=== PATIENT | female | born 2000 | race Caucasian/White ===

== ENCOUNTER 2018-10-19 22:27 | Inpatient (IN) | payer BC ==
[2018-10-19] MEDS ORDERED: SODIUM CHLORIDE 1,000 ML IV STA (22:51)
[2018-10-19] MEDS ORDERED: ACETAMINOPHEN 1000 MG/100 ML VIAL (NON FORMULARY) IVPB ONE (22:51)
[2018-10-19] MEDS ORDERED: ONDANSETRON 4 MG/2 ML VIAL IVPUSH ONE (22:51)
[2018-10-20 00:21] LABS: EPI CELLS 0.2 /HPF (0-5/HPF); HYALINE CASTS 44 /lpf (0-8); URINE APPEARANCE CLEAR; URINE BILIRUBIN NEGATIVE (NEGATIVE); URINE COLOR YELLOW; URINE GLUCOSE (UA) NEGATIVE (NEGATIVE); URINE KETONE NEGATIVE (NEGATIVE); URINE LEUK ESTERASE 2+ (NEGATIVE); URINE NITRITE NEGATIVE (NEGATIVE); URINE PROTEIN NEGATIVE (NEGATIVE); URINE RBC 3 /hpf (0-4); URINE UROBILINOGEN 0.2 mg/dL (0.2-1.0); URINE WBC 61 /hpf (0-5)
--- NOTE | 2018-10-20 01:50 | PDOC ---
History of Present Illness - General Chief Complaint: Urinary Problem Stated Complaint: URINARY PROBLEM Time Seen by Provider: 10/19/18 22:50 History Source: Patient Exam Limitations: No Limitations Past History - Travel Traveled outside of the country in the last 30 days: No Close contact w/someone who was outside of country & ill: No - Past Medical History Allergies/Adverse Reactions: Allergies Allergy/AdvReac Type Severity Reaction Status Date / Time No Known Allergies Allergy Verified 10/20/18 02:14 Home Medications: Ambulatory Orders Acetaminophen [Tylenol] 625 mg PO Q8H PRN #20 capsule 10/22/18 Cephalexin [Keflex] 500 mg PO Q12H #16 capsule 10/22/18 Ibuprofen [Motrin Ib] 200 mg PO Q8H PRN #20 tablet 10/22/18 COPD: No Other medical history: No Rt Kidney since . - Suicide/Smoking/Psychosocial Hx Smoking History: Current some day smoker Have you smoked in the past 12 months: Yes Number of Cigarettes Smoked Daily: 0 Information on smoking cessation initiated: Yes Hx Alcohol Use: Yes Drug/Substance Use Hx: Yes Review of Systems - Review of Systems Able to Perform ROS?: Yes Comments:: 10/20/18 01:38 CONSTITUTIONAL: Absent: fever, chills, diaphoresis, generalized weakness, malaise, loss of appetite HEENT: Absent: rhinorrhea, nasal congestion, throat pain, throat swelling, difficulty swallowing, mouth swelling, ear pain, eye pain, visual Changes CARDIOVASCULAR: Absent: chest pain, loss of consciousness, palpitations, irregular heart rate, peripheral edema RESPIRATORY: Absent: cough, shortness of breath, dyspnea with exertion, orthopnea, wheezing, stridor, hemoptysis GASTROINTESTINAL: Absent: abdominal pain, abdominal distension, nausea, vomiting, diarrhea, constipation, melena, hematochezia GENITOURINARY: Present: dysuria, frequency, hematuria, flank pain Absent: urgency, hesitancy, genital pain MUSCULOSKELETAL: Absent: myalgia, arthralgia, joint swelling SKIN: Absent: rash, itching, pallor HEMATOLOGIC/IMMUNOLOGIC: Absent: easy bleeding, easy bruising, lymphadenopathy, frequent infections ENDOCRINE: Absent: unexplained weight gain, unexplained weight loss, heat intolerance, cold intolerance NEUROLOGIC: Absent: headache, focal weakness or paresthesias, dizziness, unsteady gait, seizure, mental status changes, bladder or bowel incontinence PSYCHIATRIC: Absent: anxiety, depression, suicidal or homicidal ideation, hallucinations. Is the patient limited Bulgarian proficient: No *Physical Exam - Vital Signs Last Vital Signs Temp Pulse Resp BP Pulse Ox 98.5 F 97 H 18 115/74 100 10/19/18 22:33 10/19/18 22:33 10/19/18 22:33 10/19/18 22:33 10/19/18 22:33 - Physical Exam Comments: 10/20/18 01:39 GENERAL: Well developed, well nourished. Awake and alert. No acute distress. HEENT: Normocephalic, atraumatic. PERRLA, EOMI. No conjunctival pallor. Sclera are non- icteric. Moist mucous membranes. Oropharynx is clear. NECK: Supple. Full ROM. No JVD. Carotid pulses 2+ and symmetric, without bruits. No thyromegaly. No lymphadenopathy. CARDIOVASCULAR: Regular rate and rhythm. No murmurs, rubs, or gallops. Distal pulses are 2+ and symmetric. PULMONARY: No evidence of respiratory distress. Lungs clear to auscultation bilaterally. No wheezing, rales or rhonchi. ABDOMINAL: Soft. Abdominal discomfort in the lower abdomen. Non-distended. No rebound or guarding. No organomegaly. Normoactive bowel sounds. MUSCULOSKELETAL Normal range of motion at all joints. No bony deformities or tenderness. (+) L CVA tenderness. EXTREMITIES: No cyanosis. No clubbing. No edema. No calf tenderness. SKIN: Warm and dry. Normal capillary refill. No rashes. No jaundice. NEUROLOGICAL: Alert, awake, appropriate. Cranial nerves 2-12 intact. No deficits to light touch and temperature in face, upper extremities and lower extremities. No motor deficits in the in face, upper extremities and lower extremities. Normoreflexic in the upper and lower extremities. Normal speech. Toes are down- going bilaterally. Gait is normal without ataxia. PSYCHIATRIC: Cooperative. Good eye contact. Appropriate mood and affect. ED Treatment Course - LABORATORY CBC & Chemistry Diagram: 10/22/18 06:00 10/22/18 06:00 - ADDITIONAL ORDERS Additional order review: Laboratory Results 10/20/18 00:11 Urine Color Yellow Urine Appearance Clear Urine pH 7.0 Ur Specific [place] 1.017 Urine Protein Negative Urine Glucose (UA) Negative Urine Ketones Negative Urine Blood Negative Urine Nitrite Negative Urine Bilirubin Negative Urine Urobilinogen 0.2 Ur Leukocyte Esterase 2+ H Urine WBC (Auto) 61 Urine RBC (Auto) 3 Urine Casts (Auto) 44 U Epithel Cells (Auto) 0.2 Urine Bacteria (Auto) 845.0 Medical Decision Making - Medical Decision Making 10/20/18 01:40 The patient is a 18 y/o F with PMH of singular kidney (L sided) who presents to the ER today for two days of dysuria, frequency, and L sided back pain. She states that she notes blood on the tissue paper after urinating. She states she has had UTI's in the past and this pain feels similar. Also admits to some associated nausea. Denies fevers, chills, shortness of breath, diarrhea, constipation. A/P: Dysuria On exam pt with mild suprapubic tenderness and L flank pain Urine is positive for infection at this time. Basic labs drawn to evaluate for pyleonephritis given the setting of one kidney Fluids, IV meds ordered Sign out given to Dr. Perez; dispo depending on labs and kidney function. Will need abx *DC/Admit/Observation/Transfer Diagnosis at time of Disposition: Pyelonephritis UTI (urinary tract infection) Qualifiers: Urinary tract infection type: site unspecified Hematuria presence: with hematuria Qualified Code(s): N39.0 - Urinary tract infection, site not specified - Discharge Dispostion Disposition: HOME Condition at time of disposition: Improved - Referrals - Patient Instructions - Post Discharge Activity
[2018-10-20 03:19] LABS: BASO % 0.8 % (0-2.0); EOS % 2.1 % (0-4.5); HEMATOCRIT 41.2 % (32.4-45.2); HEMOGLOBIN 13.9 GM/dL (10.7-15.3); LYMPH % 29.2 % (8-40); MCH 27.9 pg (25.7-33.7); MCHC 33.9 g/dl (32.0-36.0); MEAN CELL VOLUME 82.5 fl (80-96); MEAN PLT VOLUME 8.8 fl (7.5-11.1); MONO % 4.4 % (3.8-10.2); NEUT % 63.5 % (42.8-82.8); PLATELET COUNT 257 K/MM3 (134-434); RBC 4.99 M/mm3 (3.60-5.2); RDW 13.8 % (11.6-15.6)
[2018-10-20] MEDS ORDERED: CEFTRIAXONE 1,000 MG in DEXTROSE 5%-WATER - 50 ML IVPB ONE (03:43)
--- NOTE | 2018-10-20 03:43 | PDOC ---
*Physical Exam - Vital Signs Last Vital Signs Temp Pulse Resp BP Pulse Ox 98.5 F 97 H 18 115/74 100 10/19/18 22:33 10/19/18 22:33 10/19/18 22:33 10/19/18 22:33 10/19/18 22:33 - Physical Exam General Appearance: Yes: Nourished, Appropriately Dressed. No: Apparent Distress HEENT: positive: Normal ENT Inspection, Normal Voice Neck: positive: Supple Respiratory/Chest: positive: Lungs Clear Cardiovascular: positive: Regular Rhythm, Regular Rate Vascular Pulses: Dorsalis-Pedis (R): 2+, Doralis-Pedis (L): 2+ Gastrointestinal/Abdominal: positive: Normal Bowel Sounds, Soft. negative: Guarding Rectal Exam: positive: deferred Lymphatic: negative: Adenopathy Musculoskeletal: positive: Normal Inspection, CVA Tenderness Extremity: positive: Normal Capillary Refill, Normal Inspection, Normal Range of Motion Integumentary: positive: Normal Color, Dry, Warm Neurologic: positive: Fully Oriented, Alert, Normal Mood/Affect ED Treatment Course - LABORATORY CBC & Chemistry Diagram: 10/20/18 03:07 10/20/18 03:07 - ADDITIONAL ORDERS Additional order review: Laboratory Results 10/20/18 00:11 Urine Color Yellow Urine Appearance Clear Urine pH 7.0 Ur Specific [place] 1.017 Urine Protein Negative Urine Glucose (UA) Negative Urine Ketones Negative Urine Blood Negative Urine Nitrite Negative Urine Bilirubin Negative Urine Urobilinogen 0.2 Ur Leukocyte Esterase 2+ H Urine WBC (Auto) 61 Urine RBC (Auto) 3 Urine Casts (Auto) 44 U Epithel Cells (Auto) 0.2 Urine Bacteria (Auto) 845.0 10/20/18 03:07 RBC 4.99 MCV 82.5 MCHC 33.9 RDW 13.8 MPV 8.8 Neutrophils % 63.5 Lymphocytes % 29.2 Monocytes % 4.4 Eosinophils % 2.1 Basophils % 0.8 - Medications Given in the ED: ED Medications Discontinued Medications Generic Name Dose Route Start Last Admin Trade Name Freq PRN Reason Stop Dose Admin Acetaminophen 1,000 mg 10/19/18 22:51 10/20/18 02:12 Ofirmev Injection - IVPB 10/19/18 22:52 1,000 mg ONCE ONE Administration Sodium Chloride 1,000 mls @ 1,000 mls/hr 10/19/18 22:51 10/20/18 02:11 Normal Saline - IV 10/19/18 23:50 1,000 mls/hr ASDIR STA Administration Ondansetron HCl 4 mg 10/19/18 22:51 10/20/18 02:12 Zofran Injection IVPUSH 10/19/18 22:52 4 mg ONCE ONE Administration Medical Decision Making - Medical Decision Making Patient signed out to me with UTI and one kidney. When I evlauated her she had significant flank pain worrisome for Pylo. Considering she only has 1 kidney I am concerned that she might have pylo and needs to be admitted for IV Abx. Plan: Abx, Admit - Ceftriaxone for Abx *DC/Admit/Observation/Transfer Diagnosis at time of Disposition: Pyelonephritis UTI (urinary tract infection) Qualifiers: Urinary tract infection type: site unspecified Hematuria presence: with hematuria Qualified Code(s): N39.0 - Urinary tract infection, site not specified ; R31.9 - Hematuria, unspecified - Discharge Dispostion Condition at time of disposition: Stable Decision to Admit order: Yes - Referrals - Patient Instructions - Post Discharge Activity
[2018-10-20 03:46] LABS: ALBUMIN 3.6 g/dl (3.4-5.0); BILIRUBIN,TOTAL 0.4 mg/dL (0.2-1); BLOOD UREA NITROGEN 14.9 mg/dL (7-18); CALCIUM 9.4 mg/dL (8.5-10.1); CREATININE 0.8 mg/dL (0.55-1.3); TOT PROT 7.7 g/dl (6.4-8.2)
[2018-10-20] MEDS ORDERED: CEFTRIAXONE 1 GM/50 ML BAG ONE (04:28)
[2018-10-20] MEDS: HEPARIN NA (PORCINE) 5,000 UNITS/ML 1ML VIAL SQ SCH ×3 (05:49→21:16)
--- NOTE | 2018-10-20 06:28 | PN ---
Teaching Attending Note Name of Resident: Jonas Ariza ATTENDING PHYSICIAN STATEMENT I saw and evaluated the patient. Chart, data, imaging reviewed. I reviewed the resident's note and discussed the case with the resident. I agree with the resident's findings and plan as documented. SUBJECTIVE: 18 y/o F with PMH of singular kidney (L sided) c/o 3 days of dysuria, left flank pain. Reports one prior episode of pyelonephritis 2 years ago. Has not had any fevers or chills. Has not taken any medications at home. OBJECTIVE: Last Vital Signs Temp Pulse Resp BP Pulse Ox 98.5 F 97 H 18 115/74 100 10/19/18 22:33 10/19/18 22:33 10/19/18 22:33 10/19/18 22:33 10/19/18 22:33 general- nontoxic, obese heent- nt, nc, aaxo3 neck supple cor- s1+s2+rrr chest clear abdomen soft nt, bs+, left sided cva tenderness skin - no rashes seen Abnormal Lab Results 10/20/18 10/20/18 10/20/18 00:11 03:07 03:07 WBC 11.0 H Alkaline Phosphatase 133 H Ur Leukocyte Esterase 2+ H ASSESSMENT AND PLAN: #Left sided pyelo, leukocytosis, congenital unilateral kidney. VS wnl -admit to med/surg -IV fluid hydration -urine culture -ceftriaxone 1g IV q24hrs -heparin sc for dvt ppx -urine drug screen
--- NOTE | 2018-10-20 07:06 | HP ---
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 She presents with burning micturation with increased urinary frequency for the past 2 days and left flank pain for 1 day. The dysuria is not associated with visible hematuria, but she states that she has noticed a few drops of fresh blood after her post void wipe today. The flank pain is localized to the left side, sudden in onset, sharp in quality, 5/ 10 in intensity, intermittent, and non radiating. She has only had one UTI in the past, in 2016, and she was treated with oral antibiotics for 5-7 days. She tested negative for STDs last year, and engaged in unprotected intercourse in early August. Her LMP was also in early August. ER course was notable for: (1) Ceftriaxone (2) UA LE 2+ (3) Ofiramev for pain Recent Travel: [place] for a month in September, had the flu for 5 days PAST MEDICAL HISTORY: Congenital anomaly that left her with one kidney (on the left) PAST SURGICAL HISTORY: None Social History: Smoking: Vape, socially Alcohol: socially Drugs: marijuana, finished an eighth in a week Family History: None Allergies No Known Allergies Allergy (Verified 10/20/18 02:14) HOME MEDICATIONS: REVIEW OF SYSTEMS CONSTITUTIONAL: Chills Absent: fever, chills, diaphoresis, generalized weakness, malaise, loss of appetite, weight change HEENT: Absent: rhinorrhea, nasal congestion, throat pain, throat swelling, difficulty swallowing, mouth swelling, ear pain, eye pain, visual changes CARDIOVASCULAR: Absent: chest pain, syncope, palpitations, irregular heart rate, lightheadedness , peripheral edema RESPIRATORY: Absent: cough, shortness of breath, dyspnea with exertion, orthopnea, wheezing, stridor, hemoptysis GASTROINTESTINAL: Absent: abdominal pain, abdominal distension, nausea, vomiting, diarrhea, constipation, melena, hematochezia GENITOURINARY: dysuria, frequency, urgency, flank pain, Absent: dysuria, frequency, urgency, hesitancy, hematuria, flank pain, genital pain MUSCULOSKELETAL: Absent: myalgia, arthralgia, joint swelling, back pain, neck pain SKIN: Absent: rash, itching, pallor HEMATOLOGIC/IMMUNOLOGIC: Absent: easy bleeding, easy bruising, lymphadenopathy, frequent infections ENDOCRINE: Absent: unexplained weight gain, unexplained weight loss, heat intolerance, cold intolerance NEUROLOGIC: Absent: headache, focal weakness or paresthesias, dizziness, unsteady gait, seizure, mental status changes, bladder or bowel incontinence PSYCHIATRIC: Absent: anxiety, depression, suicidal or homicidal ideation, hallucinations. PHYSICAL EXAMINATION Vital Signs - 24 hr 10/19/18 10/20/18 22:33 06:37 Temperature 98.5 F 98.2 F Pulse Rate 97 H 76 Respiratory 18 18 Rate Blood Pressure 115/74 128/58 L O2 Sat by Pulse 100 Oximetry (%) GENERAL: Awake, alert, and fully oriented, in no acute distress. HEAD: Normal with no signs of trauma. EYES: Pupils equal, round and reactive to light, extraocular movements intact, sclera anicteric, conjunctiva clear. No lid lag. EARS, NOSE, THROAT: Ears normal, nares patent, oropharynx clear without exudates. Moist mucous membranes. NECK: Normal range of motion, supple without lymphadenopathy, JVD, or masses. LUNGS: Breath sounds equal, clear to auscultation bilaterally. No wheezes, and no crackles. No accessory muscle use. HEART: Regular rate and rhythm, normal S1 and S2 without murmur, rub or gallop. ABDOMEN: Soft, not distended, normoactive bowel sounds, Left CVA tenderness MUSCULOSKELETAL: Normal range of motion at all joints. No bony deformities or tenderness. No CVA tenderness. UPPER EXTREMITIES: 2+ pulses, warm, well-perfused. No cyanosis. No clubbing. No peripheral edema. LOWER EXTREMITIES: 2+ pulses, warm, well-perfused. No calf tenderness. No peripheral edema. NEUROLOGICAL: Cranial nerves II-XII intact. Normal speech. Normal gait. PSYCHIATRIC: Cooperative. Good eye contact. Appropriate mood and affect. SKIN: Warm, dry, normal turgor, no rashes or lesions noted, normal capillary refill. Laboratory Results - last 24 hr 10/20/18 10/20/18 10/20/18 00:11 03:07 03:07 WBC 11.0 H RBC 4.99 Hgb 13.9 Hct 41.2 MCV 82.5 MCH 27.9 MCHC 33.9 RDW 13.8 Plt Count 257 MPV 8.8 Absolute Neuts (auto) 7.0 Neutrophils % 63.5 Lymphocytes % 29.2 Monocytes % 4.4 Eosinophils % 2.1 Basophils % 0.8 Nucleated RBC % 0 Sodium 137 Potassium 4.0 Chloride 106 Carbon Dioxide 23 Anion Gap 8 BUN 14.9 Creatinine 0.8 Est GFR (CKD-EPI)AfAm 123.01 Est GFR (CKD-EPI)NonAf 106.13 Random Glucose 91 Calcium 9.4 Total Bilirubin 0.4 AST 23 ALT 26 Alkaline Phosphatase 133 H Total Protein 7.7 Albumin 3.6 Urine Color Yellow Urine Appearance Clear Urine pH 7.0 Ur Specific [place] 1.017 Urine Protein Negative Urine Glucose (UA) Negative Urine Ketones Negative Urine Blood Negative Urine Nitrite Negative Urine Bilirubin Negative Urine Urobilinogen 0.2 Ur Leukocyte Esterase 2+ H Urine WBC (Auto) 61 Urine RBC (Auto) 3 Urine Casts (Auto) 44 U Epithel Cells (Auto) 0.2 Urine Bacteria (Auto) 845.0 ASSESSMENT/PLAN: #Pyelonephritis - WBC 11.0 - Congenital unilateral kidney - Ceftriaxone 1g IV Q24H started - Urine culture sent - Urine tox screen - Ofirmev for pain #FEN - N/S @ 1000 given in ER - Regular diet #DVT PE - Heparin 5000 SQ #Code status - Full code Visit type - Emergency Visit Emergency Visit: Yes ED Registration Date: 10/20/18 Care time: The patient presented to the Emergency Department on the above date and was hospitalized for further evaluation of their emergent condition. - New Patient This patient is new to me today: Yes Date on this admission: 10/20/18 - Critical Care Critical Care patient: No ATTENDING PHYSICIAN STATEMENT I saw and evaluated the patient. I reviewed the resident's note and discussed the case with the resident. I agree with the resident's findings and plan as documented. SUBJECTIVE: OBJECTIVE: ASSESSMENT AND PLAN:
[2018-10-20 08:39] VITALS: BMI 38.8
[2018-10-20] MEDS: SODIUM CHLORIDE 1,000 ML IV SCH (08:39)
[2018-10-20 10:58] LABS: BASO % 0.5 % (0-2.0); HEMATOCRIT 35.7 % (32.4-45.2); HEMOGLOBIN 12.1 GM/dL (10.7-15.3); LYMPH % 31.8 % (8-40); MCH 27.8 pg (25.7-33.7); MCHC 33.8 g/dl (32.0-36.0); MEAN CELL VOLUME 82.5 fl (80-96); MEAN PLT VOLUME 8.9 fl (7.5-11.1); MONO % 5.3 % (3.8-10.2); NEUT % 60.4 % (42.8-82.8); PLATELET COUNT 228 K/MM3 (134-434); RBC 4.33 M/mm3 (3.60-5.2); WHITE BLOOD COUNT 10.8 K/mm3 (4.0-10.0)
[2018-10-20 11:24] LABS: BLOOD UREA NITROGEN 14.2 mg/dL (7-18); CALCIUM 8.5 mg/dL (8.5-10.1); CREATININE 0.8 mg/dL (0.55-1.3); MAGNESIUM 1.7 mg/dL (1.8-2.4); POTASSIUM 3.9 mmol/L (3.5-5.1)
[2018-10-20] MEDS: KETOROLAC TROMETHAMINE 15 MG/ML VIAL IVPUSH PRN (13:24)
--- NOTE | 2018-10-20 14:01 | EKG ---
Test Reason : Blood Pressure : / mmHG Vent. Rate : 075 BPM Atrial Rate : 075 BPM P-R Int : 116 ms QRS Dur : 072 ms QT Int : 376 ms P-R-T Axes : 016 047 016 degrees QTc Int : 419 ms NORMAL SINUS RHYTHM NORMAL ECG NO PREVIOUS ECGS AVAILABLE Confirmed by AKILAH GROVER MD ([id number]) on 10/20/2018 2:00:46 PM Referred By: Confirmed By:AKILAH GROVER MD
--- NOTE | 2018-10-20 14:46 | PN ---
Physical Exam: SUBJECTIVE: Patient seen and examined at the bedside, no acute events overnight. Patient still feeling some suprapubic pain and L flank tenderness. OBJECTIVE: Vital Signs Period Temp Pulse Resp BP Sys/Brown Pulse Ox Last 24 Hr 98.2 F-98.5 F 76-97 18-20 105-128/53-74 100-100 GENERAL: Awake, alert, and fully oriented, in no acute distress. HEAD: Normal with no signs of trauma. EYES: Pupils equal, round and reactive to light, extraocular movements intact, sclera anicteric, conjunctiva clear. No lid lag. EARS, NOSE, THROAT: Ears normal, nares patent, oropharynx clear without exudates. Moist mucous membranes. NECK: Normal range of motion, supple without lymphadenopathy, JVD, or masses. LUNGS: Breath sounds equal, clear to auscultation bilaterally. No wheezes, and no crackles. No accessory muscle use. HEART: Regular rate and rhythm, normal S1 and S2 without murmur, rub or gallop. ABDOMEN: Soft, not distended, normoactive bowel sounds, Left CVA tenderness MUSCULOSKELETAL: Normal range of motion at all joints. No bony deformities or tenderness. UPPER EXTREMITIES: 2+ pulses, warm, well-perfused. No cyanosis. No clubbing. No peripheral edema. LOWER EXTREMITIES: 2+ pulses, warm, well-perfused. No calf tenderness. No peripheral edema. NEUROLOGICAL: Cranial nerves II-XII intact. Normal speech. Normal gait. PSYCHIATRIC: Cooperative. Good eye contact. Appropriate mood and affect. SKIN: Warm, dry, normal turgor, no rashes or lesions noted, normal capillary refill. Laboratory Results - last 24 hr 10/20/18 10/20/18 10/20/18 00:11 03:07 03:07 WBC 11.0 H RBC 4.99 Hgb 13.9 Hct 41.2 MCV 82.5 MCH 27.9 MCHC 33.9 RDW 13.8 Plt Count 257 MPV 8.8 Absolute Neuts (auto) 7.0 Neutrophils % 63.5 Lymphocytes % 29.2 Monocytes % 4.4 Eosinophils % 2.1 Basophils % 0.8 Nucleated RBC % 0 Sodium 137 Potassium 4.0 Chloride 106 Carbon Dioxide 23 Anion Gap 8 BUN 14.9 Creatinine 0.8 Est GFR (CKD-EPI)AfAm 123.01 Est GFR (CKD-EPI)NonAf 106.13 Random Glucose 91 Calcium 9.4 Magnesium Total Bilirubin 0.4 AST 23 ALT 26 Alkaline Phosphatase 133 H Total Protein 7.7 Albumin 3.6 Urine Color Yellow Urine Appearance Clear Urine pH 7.0 Ur Specific [place] 1.017 Urine Protein Negative Urine Glucose (UA) Negative Urine Ketones Negative Urine Blood Negative Urine Nitrite Negative Urine Bilirubin Negative Urine Urobilinogen 0.2 Ur Leukocyte Esterase 2+ H Urine WBC (Auto) 61 Urine RBC (Auto) 3 Urine Casts (Auto) 44 U Epithel Cells (Auto) 0.2 Urine Bacteria (Auto) 845.0 Urine HCG, Qual 10/20/18 10/20/18 10/20/18 08:45 10:30 10:30 WBC 10.8 H RBC 4.33 Hgb 12.1 Hct 35.7 MCV 82.5 MCH 27.8 MCHC 33.8 RDW 14.0 Plt Count 228 MPV 8.9 Absolute Neuts (auto) 6.5 Neutrophils % 60.4 Lymphocytes % 31.8 Monocytes % 5.3 Eosinophils % 2.0 Basophils % 0.5 Nucleated RBC % 0 Sodium 139 Potassium 3.9 Chloride 104 Carbon Dioxide 27 Anion Gap 8 BUN 14.2 Creatinine 0.8 Est GFR (CKD-EPI)AfAm 123.01 Est GFR (CKD-EPI)NonAf 106.13 Random Glucose 91 Calcium 8.5 Magnesium 1.7 L Total Bilirubin AST ALT Alkaline Phosphatase Total Protein Albumin Urine Color Urine Appearance Urine pH Ur Specific [place] Urine Protein Urine Glucose (UA) Urine Ketones Urine Blood Urine Nitrite Urine Bilirubin Urine Urobilinogen Ur Leukocyte Esterase Urine WBC (Auto) Urine RBC (Auto) Urine Casts (Auto) U Epithel Cells (Auto) Urine Bacteria (Auto) Urine HCG, Qual Negative Active Medications Generic Name Dose Route Start Last Admin Trade Name Freq PRN Reason Stop Dose Admin Heparin Sodium (Porcine) 5,000 unit 10/20/18 06:00 10/20/18 13:25 Heparin - SQ Not Given TID MECHELLE Ceftriaxone Sodium 1 gm/ 50 mls @ 100 mls/hr 10/20/18 18:00 Dextrose IVPB Q24H MECHELLE Sodium Chloride 1,000 mls @ 100 mls/hr 10/20/18 07:15 10/20/18 08:39 Normal Saline - IV 100 mls/hr ASDIR MECHELLE Administration Ketorolac Tromethamine 15 mg 10/20/18 13:03 10/20/18 13:24 Toradol Injection - IVPUSH 10/25/18 13:02 15 mg Q6H PRN Administration PAIN LEVEL 4 - 6 ASSESSMENT/PLAN: Ms. Guillermo Mack is a 18 y/o woman with a pmhx of congential L sided unilateral kidney, and UTI who presented with urinary sx and is currently admitted for management of L pyelonephritis. # L Pyelonephritis - WBC 11.0 - Congenital unilateral kidney - Contine Ceftriaxone 1g IV Q24H - F/U Urine culture - Ofirmev for pain - Zofran for nausea #FEN - N/S @ 1000 given in ER, can tolerate PO fluids - Regular diet #DVT PE - Heparin 5000 SQ #Code status - Full code Visit type - Emergency Visit Emergency Visit: Yes ED Registration Date: 10/20/18 Care time: The patient presented to the Emergency Department on the above date and was hospitalized for further evaluation of their emergent condition. - New Patient This patient is new to me today: Yes Date on this admission: 10/21/18 - Critical Care Critical Care patient: No - Discharge Referral Referred to [facility] Med P.C.: No ATTENDING PHYSICIAN STATEMENT I saw and evaluated the patient. I reviewed the resident's note and discussed the case with the resident. I agree with the resident's findings and plan as documented. SUBJECTIVE: OBJECTIVE: ASSESSMENT AND PLAN:
[2018-10-20] MEDS ORDERED: ONDANSETRON 8 MG TABLET (FP) PO PRN ×2 (15:49→16:32)
[2018-10-20] MEDS ORDERED: ONDANSETRON 4 MG/2 ML VIAL IVPUSH PRN (15:55)
[2018-10-20] MEDS ORDERED: MAGNESIUM OXIDE 400 MG TABLET (FP) PO ONE (16:28)
--- NOTE | 2018-10-20 17:20 | PN ---
Teaching Attending Note Name of Resident: Carolin Levy ATTENDING PHYSICIAN STATEMENT I saw and evaluated the patient. I reviewed the resident's note and discussed the case with the resident. I agree with the resident's findings and plan as documented. SUBJECTIVE: pain in L flank is better . No fever or chills. OBJECTIVE: NAD. Cv: RRR Lungs : CTAb Ext No edema ABD: soft, ND, TTP in suprapubic area and LLQ. + L CVA tenderness ASSESSMENT AND PLAN: 18 y/o lady with h.o solitary kidney, and UTI who presented with urinary sx and was diagnosed with L pyelonephritis 1- L pyelonephjritis: - cont ceftriaxone - IVF - follow urine cx - zofran for nausea 2- DVT PX : heparin sq
[2018-10-20] MEDS ORDERED: CEFTRIAXONE 1 GM in DEXTROSE 5%-WATER - 50 ML IVPB SCH (18:00)
[2018-10-21] MEDS: SODIUM CHLORIDE 1,000 ML IV SCH ×2 (04:49→09:05)
[2018-10-21] MEDS: HEPARIN NA (PORCINE) 5,000 UNITS/ML 1ML VIAL SQ SCH ×3 (05:48→22:09)
[2018-10-21 07:17] LABS: HEMATOCRIT 36.1 % (32.4-45.2); HEMOGLOBIN 12.1 GM/dL (10.7-15.3); MCH 27.7 pg (25.7-33.7); MCHC 33.6 g/dl (32.0-36.0); MEAN CELL VOLUME 82.4 fl (80-96); MEAN PLT VOLUME 8.7 fl (7.5-11.1); PLATELET COUNT 219 K/MM3 (134-434); RBC 4.38 M/mm3 (3.60-5.2); WHITE BLOOD COUNT 7.9 K/mm3 (4.0-10.0)
[2018-10-21 07:41] LABS: BLOOD UREA NITROGEN 9.2 mg/dL (7-18); CALCIUM 8.6 mg/dL (8.5-10.1); CREATININE 0.6 mg/dL (0.55-1.3); POTASSIUM 4.1 mmol/L (3.5-5.1)
[2018-10-21] MEDS ORDERED: DEXTROSE 5%-WATER - 50 ML IVPB ONE (08:47)
[2018-10-21] MEDS ORDERED: cefTRIAXone SODIUM 1 GM VIAL ONE (08:47)
[2018-10-21] MEDS: CEFTRIAXONE 1 GM in DEXTROSE 5%-WATER - 50 ML IVPB SCH (09:00)
[2018-10-21] MEDS: KETOROLAC TROMETHAMINE 15 MG/ML VIAL IVPUSH PRN (14:20)
[2018-10-21] MEDS ORDERED: KETOROLAC TROMETHAMINE 15 MG/ML VIAL IVPUSH PRN (14:53)
--- NOTE | 2018-10-21 14:56 | PN ---
Teaching Attending Note Name of Resident: Val Toledo ATTENDING PHYSICIAN STATEMENT I saw and evaluated the patient. I reviewed the resident's note and discussed the case with the resident. I agree with the resident's findings and plan as documented. SUBJECTIVE: No fever or chills. No JOHNSON. still has abd pain and left flank pain. no diarrhea. No flank pain OBJECTIVE: NAD. Cv: RRR Lungs : CTAb Ext No edema ABD: soft, ND, TTP in suprapubic area and LLQ. + L CVA tenderness ASSESSMENT AND PLAN: 18 y/o lady with h.o solitary kidney, and UTI who presented with urinary sx and was diagnosed with L pyelonephritis 1- L pyelonephjritis: - cont ceftriaxone - IVF - urine cx with lactose fermenting GNR . will follow sensitivity - zofran for nausea 2- DVT PX: heparin sq
[2018-10-22] MEDS: HEPARIN NA (PORCINE) 5,000 UNITS/ML 1ML VIAL SQ SCH (05:48)
[2018-10-22 07:41] LABS: HEMATOCRIT 35.5 % (32.4-45.2); HEMOGLOBIN 11.9 GM/dL (10.7-15.3); MCH 27.9 pg (25.7-33.7); MCHC 33.7 g/dl (32.0-36.0); MEAN CELL VOLUME 82.9 fl (80-96); MEAN PLT VOLUME 9.4 fl (7.5-11.1); PLATELET COUNT 211 K/MM3 (134-434); RBC 4.28 M/mm3 (3.60-5.2); RDW 13.8 % (11.6-15.6); WHITE BLOOD COUNT 6.5 K/mm3 (4.0-10.0)
[2018-10-22 07:52] LABS: BLOOD UREA NITROGEN 12.2 mg/dL (7-18); CALCIUM 8.3 mg/dL (8.5-10.1); CREATININE 0.6 mg/dL (0.55-1.3); POTASSIUM 4.1 mmol/L (3.5-5.1)
[2018-10-22] MEDS ORDERED: cefTRIAXone SODIUM 1 GM VIAL ONE (08:51)
[2018-10-22] MEDS ORDERED: DEXTROSE 5%-WATER - 50 ML IVPB ONE (08:51)
[2018-10-22] MEDS: CEFTRIAXONE 1 GM in DEXTROSE 5%-WATER - 50 ML IVPB SCH (09:34)
[2018-10-22] MEDS ORDERED: DOCUSATE SODIUM 100 MG CAPSULE (FP) PO ONE (10:41)
[2018-10-22] MEDS ORDERED: SENNOSIDES 8.6MG TABLET (FP) PO ONE (10:42)
[2018-10-22] MEDS: SODIUM CHLORIDE 1,000 ML IV SCH (12:46)
[2018-10-22 14:23] VITALS: BP 116/62; PULSE 69; TEMP 98.2
--- NOTE | 2018-10-22 16:13 | PN ---
Progress Note (short form) - Note Progress Note: Subjective: no fever or chills. No JOHNSON . Abd pain is better . has discomfort in L foot when she ambulates Objective: Vital Signs: Last Vital Signs Temp Pulse Resp BP Pulse Ox 98.2 F 69 20 116/62 100 10/22/18 14:22 10/22/18 14:22 10/22/18 14:22 10/22/18 14:22 10/21/18 21:00 Laboratory Results - last 24 hr 10/22/18 10/22/18 06:00 06:00 WBC 6.5 RBC 4.28 Hgb 11.9 Hct 35.5 MCV 82.9 MCH 27.9 MCHC 33.7 RDW 13.8 Plt Count 211 MPV 9.4 Sodium 141 Potassium 4.1 Chloride 107 Carbon Dioxide 25 Anion Gap 10 BUN 12.2 Creatinine 0.6 Est GFR (CKD-EPI)AfAm 152.08 Est GFR (CKD-EPI)NonAf 131.21 Random Glucose 84 Calcium 8.3 L Physical Exam: NAD. Cv: RRR Lungs : CTAb Ext No edema. feet with no erythema or edema. L foot with tenderness over 5th metatarsal ABD: soft, ND, minimal TTP in suprapubic area and LLQ. - CVA tenderness ASSESSMENT AND PLAN: 18 y/o lady with h.o solitary kidney, and UTI who presented with urinary sx and was diagnosed with L pyelonephritis 1- L pyelonephjritis: - Ucx and sensitivity reviewed. will switch to keflex to complete 10 days of treatment - will refer to urology after dc can take ibuprofenadn tylenol for pain at home 2- xray of the L foot , neg for Fx Dc home Visit type - Emergency Visit Emergency Visit: Yes ED Registration Date: 10/20/18 Care time: The patient presented to the Emergency Department on the above date and was hospitalized for further evaluation of their emergent condition. - New Patient This patient is new to me today: No - Critical Care Critical Care patient: No
--- NOTE | 2018-10-22 21:09 | PN ---
Physical Exam: SUBJECTIVE: Patient seen and examined at the bedside, there were no acute events overnight and the patient reports she's doing well. OBJECTIVE: Vital Signs Period Temp Pulse Resp BP Sys/Brown Pulse Ox Last 24 Hr 98.2 F-98.9 F 69-74 18-20 106-127/62-78 GENERAL: Awake, alert, and fully oriented, in no acute distress. HEAD: Normal with no signs of trauma. EYES: Pupils equal, round and reactive to light, extraocular movements intact, sclera anicteric, conjunctiva clear. No lid lag. EARS, NOSE, THROAT: Ears normal, nares patent, oropharynx clear without exudates. Moist mucous membranes. NECK: Normal range of motion, supple without lymphadenopathy, JVD, or masses. LUNGS: Breath sounds equal, clear to auscultation bilaterally. No wheezes, and no crackles. No accessory muscle use. HEART: Regular rate and rhythm, normal S1 and S2 without murmur, rub or gallop. ABDOMEN: Soft, not distended, normoactive bowel sounds, Left CVA tenderness MUSCULOSKELETAL: Normal range of motion at all joints. No bony deformities or tenderness. UPPER EXTREMITIES: 2+ pulses, warm, well-perfused. No cyanosis. No clubbing. No peripheral edema. LOWER EXTREMITIES: 2+ pulses, warm, well-perfused. No calf tenderness. No peripheral edema. NEUROLOGICAL: Cranial nerves II-XII intact. Normal speech. Normal gait. PSYCHIATRIC: Cooperative. Good eye contact. Appropriate mood and affect. SKIN: Warm, dry, normal turgor, no rashes or lesions noted, normal capillary refill. Laboratory Results - last 24 hr 10/22/18 10/22/18 06:00 06:00 WBC 6.5 RBC 4.28 Hgb 11.9 Hct 35.5 MCV 82.9 MCH 27.9 MCHC 33.7 RDW 13.8 Plt Count 211 MPV 9.4 Sodium 141 Potassium 4.1 Chloride 107 Carbon Dioxide 25 Anion Gap 10 BUN 12.2 Creatinine 0.6 Est GFR (CKD-EPI)AfAm 152.08 Est GFR (CKD-EPI)NonAf 131.21 Random Glucose 84 Calcium 8.3 L ASSESSMENT/PLAN: Ms. Guillermo Mack is a 18 y/o woman with a pmhx of congential L sided unilateral kidney, and UTI who presented with urinary sx and is currently admitted for management of L pyelonephritis. # L Pyelonephritis - WBC 11.0 - Congenital unilateral kidney - Contine Ceftriaxone 1g IV Q24H - F/U Urine culture - Ofirmev for pain - Zofran for nausea #FEN - N/S @ 1000 given in ER, can tolerate PO fluids - Regular diet #DVT PE - Heparin 5000 SQ #Code status - Full code Dispo: continue current management for now, patient can likely be discharged soon on oral antibiotics. Visit type - Emergency Visit Emergency Visit: Yes ED Registration Date: 10/20/18 Care time: The patient presented to the Emergency Department on the above date and was hospitalized for further evaluation of their emergent condition. - New Patient This patient is new to me today: No - Critical Care Critical Care patient: No - Discharge Referral Referred to [facility] No ATTENDING PHYSICIAN STATEMENT I saw and evaluated the patient. I reviewed the resident's note and discussed the case with the resident. I agree with the resident's findings and plan as documented. SUBJECTIVE: OBJECTIVE: ASSESSMENT AND PLAN:
[2018-10-22] MEDS ORDERED: MELATONIN 1 MG TABLET PO SCH (22:00)
--- NOTE | 2018-10-23 18:01 | DS ---
Physical Exam: SUBJECTIVE: Patient seen and examined at the bedside, there were no acute events overnight. Patient feels she is improving, no more hematuria. OBJECTIVE: PHYSICAL EXAM GENERAL: Awake, alert, and fully oriented, in no acute distress. HEAD: Normal with no signs of trauma. EYES: Pupils equal, round and reactive to light, extraocular movements intact, sclera anicteric, conjunctiva clear. No lid lag. EARS, NOSE, THROAT: Ears normal, nares patent, oropharynx clear without exudates. Moist mucous membranes. NECK: Normal range of motion, supple without lymphadenopathy, JVD, or masses. LUNGS: Breath sounds equal, clear to auscultation bilaterally. No wheezes, and no crackles. No accessory muscle use. HEART: Regular rate and rhythm, normal S1 and S2 without murmur, rub or gallop. ABDOMEN: Soft, not distended, normoactive bowel sounds, nontender MUSCULOSKELETAL: Normal range of motion at all joints. No bony deformities or tenderness. UPPER EXTREMITIES: 2+ pulses, warm, well-perfused. No cyanosis. No clubbing. No peripheral edema. LOWER EXTREMITIES: 2+ pulses, warm, well-perfused. No calf tenderness. No peripheral edema. NEUROLOGICAL: Cranial nerves II-XII intact. Normal speech. Normal gait. PSYCHIATRIC: Cooperative. Good eye contact. Appropriate mood and affect. SKIN: Warm, dry, normal turgor, no rashes or lesions noted, normal capillary refill. LABS CBC, BMP 10/22/18 06:00 10/22/18 06:00 HOSPITAL COURSE: Date of Admission: 10/20/18 Ms. Guillermo Mack is a 18 y/o woman with a pmhx of congential L sided unilateral kidney, and UTI who presented with urinary sx and is currently admitted for management of L pyelonephritis. During her admission she was treated with IV ceftriaxone and IV fluids. Ucx and sensitivites revealed . Was switched to keflex to complete 10 days of treatment and plans to follow up with urology as an outpatient. Advised to take ibuprofen and tylenol for pain at home. Had pain in L foot and got XRay which was negative for fracture. Patient was discharged home. Date of Discharge: 10/23/18 Minutes to complete discharge: 40 Discharge Summary Reason For Visit: URINARY TRACT INFECTION, PYELONEPHRITIS Condition: Improved - Instructions Diet, Activity, Other Instructions: You have a urinary tract infeection that travelled to your kidney - take abntibiotics as prescribed, and start tomorrow morning. do not miss any dose . - if you have any fever, worsenign pain, blood in your urine, or other unusual symptoms please come back to ER . - please see your primary care doctor in 1 week - referral to urology, dr. Sandy in 1 week - take tylenol and ibuprofen ( alternate ) for pain. do not exceed > 4 g of tylenol a day. Good luck Referrals: Mk Sandy MD [Staff Physician] - 1 Week Disposition: HOME - Home Medications Comprehensive Discharge Medication List: Ambulatory Orders Acetaminophen [Tylenol] 625 mg PO Q8H PRN #20 capsule 10/22/18 Cephalexin [Keflex] 500 mg PO Q12H #16 capsule 10/22/18 Ibuprofen [Motrin Ib] 200 mg PO Q8H PRN #20 tablet 10/22/18 This patient is new to me today: No Emergency Visit: Yes ED Registration Date: 10/20/18 Care time: The patient presented to the Emergency Department on the above date and was hospitalized for further evaluation of their emergent condition. Critical Care patient: No - Discharge Referral Referred to [facility] No ATTENDING PHYSICIAN STATEMENT I saw and evaluated the patient. I reviewed the resident's note and discussed the case with the resident. I agree with the resident's findings and plan as documented. SUBJECTIVE: OBJECTIVE: ASSESSMENT AND PLAN:
== END 2018-10-22 16:02 | disposition home or self-care (01) | DRG 690 ==
LOC: JER 22:27 → JERBED 10-20 03:44 → J7W 10-20 06:23
PROVIDERS: ADMIT Internal Medicine; ATTEND Internal Medicine
DX: N10 Acute pyelonephritis (principal); D72.829 Elevated white blood cell count, unspecified; E66.9 Obesity, unspecified
CPT/HCPCS: 36415; 73610-TC-LT-FY; 73630-TC-LT; 80048; 80053; 81003; 83735; 84703; 85025; 85027; 87086; 87186; 93005; 93010; 99283-25; J0131; J1644; J7030